=== PATIENT | female | born 1980 | race Caucasian/White ===

== ENCOUNTER 2024-03-26 04:29 | Inpatient (IN) | payer OTHER ==
[2024-03-24 12:27] VITALS: BMI 29.9
[2024-03-26] MEDS ORDERED: BUPIVACAINE HCL/PF 0.25% (2.5MG/ML) 10 ML VIAL ONE (12:57)
[2024-03-26] MEDS ORDERED: LIDOCAINE HCL 2% (20ML MULTI-DOSE VIAL) ONE (12:57)
[2024-03-26] MEDS ORDERED: DEXAMETHASONE SOD PHOSPHATE 4 MG/1 ML VIAL ONE ×2 (12:58→14:26)
[2024-03-26] MEDS: BUPIVACAINE HCL/PF 0.25% (2.5MG/ML) 10 ML VIAL IJ ONE (13:17)
[2024-03-26] MEDS: LIDOCAINE HCL 2% (50ML VIAL) NR ONE (13:17)
[2024-03-26] MEDS: DEXAMETHASONE SOD PHOSPHATE 4 MG/1 ML VIAL IVPUSH ONE (13:18)
[2024-03-26] MEDS ORDERED: BUPIVACAINE HCL/PF 0.5% (5MG/ML) 10 ML VIAL ONE (14:20)
[2024-03-26] MEDS ORDERED: ONDANSETRON 4 MG/2 ML VIAL ONE ×2 (14:26→19:07)
[2024-03-26] MEDS ORDERED: MIDAZOLAM HCL 2 MG/2 ML SINGLE DOSE VIAL ONE (14:26)
[2024-03-26] MEDS ORDERED: ROCURONIUM BROMIDE 50 MG/5 ML SYRINGE ONE ×3 (14:26→16:43)
[2024-03-26] MEDS ORDERED: SUCCINYLCHOLINE CHLORIDE 200 MG/10 ML SYRINGE ONE (14:26)
[2024-03-26] MEDS ORDERED: PROPOFOL 20 ML ONE ×2 (14:28→19:26)
[2024-03-26] MEDS: ceFAZolin SODIUM 1 GM VIAL IVPB ONE (14:45)
[2024-03-26] MEDS ORDERED: ePHEDrine SULFATE 50 MG/1 ML AMPULE ONE (16:04)
[2024-03-26] MEDS ORDERED: ACETAMINOPHEN INJECTION 100 ML ONE (18:03)
[2024-03-26] MEDS ORDERED: SUGAMMADEX SODIUM 200 MG/2 ML VIAL ONE (19:06)
[2024-03-26] MEDS ORDERED: ONDANSETRON 4 MG/2 ML VIAL IVPUSH PRN (19:54)
[2024-03-26] MEDS: LACTATED RINGERS SOLUTION 1,000 ML IV SCH (20:03)
[2024-03-26] MEDS ORDERED: HYDROmorphone HCL CARPU-JECT 2 MG/1 ML DISP.SYRIN ONE (21:00)
[2024-03-26] MEDS: HYDROmorphone HCl 2 MG/ML VIAL IVPUSH PRN (21:01)
[2024-03-26 21:12] VITALS: RESP 18
[2024-03-26] MEDS: oxyCODONE HCL 5 MG TABLET PO PRN (23:56)
[2024-03-26] MEDS: ACETAMINOPHEN 325 MG TABLET (FP) PO PRN (23:56)
[2024-03-27 00:20] LABS: POTASSIUM 4.2 mmol/L (3.5-5.1)
[2024-03-27 00:23] LABS: ALBUMIN 3.2 g/dl (3.4-5.0); CALCIUM 8.5 mg/dL (8.5-10.1); MAGNESIUM 1.6 mg/dL (1.8-2.4)
[2024-03-27 00:27] LABS: CREATININE 0.7 mg/dL (0.55-1.3); PHOSPHOROUS 3.7 mg/dL (2.5-4.9)
[2024-03-27 00:28] LABS: BILIRUBIN,TOTAL 0.8 mg/dL (0.2-1); TOT PROT 6.1 g/dl (6.4-8.2)
[2024-03-27 01:17] LABS: HEMOGLOBIN 12.9 GM/dL (10.7-15.3); RDW 13.5 % (11.6-15.6)
[2024-03-27 01:24] LABS: HEMATOCRIT 38.2 % (32.4-45.2); MCH 30.1 pg (25.7-33.7); MCHC 33.8 g/dl (32.0-36.0); MEAN PLT VOLUME 8.5 fl (7.5-11.1); PLATELET COUNT 209 10^3/uL (134-434); WHITE BLOOD COUNT 11.7 K/mm3 (4.0-10.0)
[2024-03-27] MEDS: MAGNESIUM 2GM/50ML STERILE WATER IVPB IVPB ONE (01:27)
[2024-03-27] MEDS: ENOXAPARIN NA (PORCINE) 40 MG/0.4 ML DISP.SYRIN SQ SCH (09:39)
[2024-03-27] MEDS ORDERED: KETOROLAC TROMETHAMINE 30 MG/1 ML VIAL IM ONE (09:49)
[2024-03-27] MEDS: FAMOTIDINE 20 MG TABLET PO SCH (10:20)
[2024-03-27] MEDS: KETOROLAC TROMETHAMINE 30 MG/1 ML VIAL IVPUSH ONE (10:21)
[2024-03-27] MEDS: KETOROLAC TROMETHAMINE 30 MG/1 ML VIAL IVPUSH SCH (14:26)
[2024-03-27] MEDS: SENNOSIDES 8.6MG TABLET (FP) PO SCH (23:13)
[2024-03-28] MEDS: POLYETHYLENE GLYCOL (HEALTHYLAX) 3350 17 GM PACKET PO SCH (09:38)
[2024-03-28 15:28] VITALS: BP 130/80; PULSE 68; TEMP 99.7
== END 2024-03-28 18:36 | disposition home or self-care (01) | DRG 314 ==
LOC: SUATTDRO 04:29 → JASU-SURG 04:29 → JASUSAT 04:29 → J7W 22:06 → JASUSAT 22:07 → J7W 03-27 10:32
PROVIDERS: ADMIT Internal Medicine; ATTEND Nurse Practitioner
PROC: 0LQV0ZZ Repair Right Foot Tendon, Open Approach (ICD-10-PCS; 2024-03-26)
PROC: 0SGH04Z Fusion of Right Tarsal Joint with Internal Fixation Device, Open Approach (ICD-10-PCS; 2024-03-26)
PROC: 0SGK04Z Fusion of Right Tarsometatarsal Joint with Internal Fixation Device, Open Approach (ICD-10-PCS; 2024-03-26)
PROC: 0QSL04Z Reposition Right Tarsal with Internal Fixation Device, Open Approach (ICD-10-PCS; principal; 2024-03-26 13:30)
DX: S86.311A Strain of muscle(s) and tendon(s) of peroneal muscle group at lower leg level, right leg, initial encounter (principal); E78.5 Hyperlipidemia, unspecified; X58.XXXA Exposure to other specified factors, initial encounter; Y93.9 Activity, unspecified; Y92.9 Unspecified place or not applicable; Y99.9 Unspecified external cause status
CPT/HCPCS: 36415; 73610-TC-RT-FY; 73630-TC-LT; 73630-TC-RT-FY; 76000-TC-FY; 80053; 81025; 83735; 84100; 85027; 88304-TC; 88311-TC; 94010; 94760; 97116-GP; 97162-GP; C1713; J0131